=== PATIENT | male | born 1960 | race Caucasian/White ===

== ENCOUNTER 2017-03-06 07:33 | Emergency (ER) | payer MEDICAID ==
[~2017-03-06] VITALS: Ht 157.5 cm; Wt 68.0 kg
[~2017-03-06 07:33] MED LIST: AMLO5TAB88 PO; FENO160T9 PO; INSLAN SUBCUT; INSU100I5 SUBCUT; LINA5TAB PO; LIP40 PO; SERT25TA PO
[2017-03-06 11:36] LABS: BASOPHILS % 1.2 % (0.0-2.0); EOSINOPHILS % 1.7 % (0.0-5.0); HEMATOCRIT. 38.7 % (42.0-52.0); HEMOGLOBIN. 12.8 g/dL (14.0-18.0); LYMPHOCYTES % 13.9 % (20.0-50.0); MEAN CORPUSCULAR HEMOGLOBIN 27.6 pg (28.0-32.0); MEAN CORPUSCULAR VOLUME 83.7 fL (80.0-94.0); MEAN PLATELET VOLUME 11.3 fl (7.4-10.4); MONOCYTES % 8.3 % (2.0-8.0); NEUTROPHILS % 74.9 % (40.0-76.0); PLATELET 156 x1000/uL (130-400); RED BLOOD CELL COUNT 4.63 mill/uL (4.7-6.1); RED CELL DISTRIBUTION WIDTH 16.6 % (11.6-14.6)
[2017-03-06 11:40] LABS: INR 1.3
[2017-03-06 11:47] LABS: CARBON DIOXIDE 30 mEq/L (21-32); CHLORIDE 104 mEq/L (98-107)
[2017-03-06] MEDS ORDERED: SODIUM BICARBONATE 4% (2.4MEQ) 5ML VIAL IV ONE (11:59)
[2017-03-06] MEDS ORDERED: LIDOCAINE HCL 1% 20ML VIAL (Pyxis) INJ ONE (11:59)
[2017-03-06 14:05] VITALS: BP 141/77
== END 2017-03-06 14:09 | disposition home or self-care (01) ==
LOC: ER 08:10
DX: K76.9 Liver disease, unspecified (principal); R18.8 Other ascites; E11.9 Type 2 diabetes mellitus without complications; I10 Essential (primary) hypertension; F17.210 Nicotine dependence, cigarettes, uncomplicated; Z95.1 Presence of aortocoronary bypass graft; Z95.0 Presence of cardiac pacemaker; Z79.4 Long term (current) use of insulin; Z79.899 Other long term (current) drug therapy
CPT/HCPCS: 36415; 49083; 80053; 83690; 85025; 85610; 86850; 86900; 86901; 87070; 87205; 88108; 88312; 89050; 99285; J3490; Z7610

== ENCOUNTER 2019-12-12 07:16 | Emergency (ER) | payer MEDICAID ==
[~2019-12-12] VITALS: Ht 160 cm; Wt 64.0 kg
[2019-12-12] MEDS ORDERED: ONDANSETRON HCL 4MG/2ML INJ IV STA (07:31)
[2019-12-12] MEDS ORDERED: MORPHINE SULFATE 4 MG/ML CPJ (NOT FOR IM USE) IV STA (07:31)
[2019-12-12] MEDS ORDERED: LIDOCAINE HCL 1% 20ML VIAL (Pyxis) INJ INFIL STA (07:36)
[2019-12-12 12:13] LABS: BASOPHILS % 0.7 % (0.0-2.0); EOSINOPHILS % 1.1 % (0.0-5.0); HEMATOCRIT. 35.8 % (42.0-52.0); HEMOGLOBIN. 11.1 g/dL (14.0-18.0); LYMPHOCYTES % 8.1 % (20.0-50.0); MEAN CORPUSCULAR HEMOGLOBIN 23.5 pg (28.0-32.0); MEAN CORPUSCULAR VOLUME 75.5 fL (80.0-94.0); MEAN PLATELET VOLUME 9.9 fl (7.4-10.4); MONOCYTES % 7.3 % (2.0-8.0); NEUTROPHILS % 82.8 % (40.0-76.0); PLATELET 261 x1000/uL (130-400); RED BLOOD CELL COUNT 4.74 mill/uL (4.7-6.1); RED CELL DISTRIBUTION WIDTH 21.8 % (11.6-14.6)
[2019-12-12 12:14] LABS: CHLORIDE 106 mEq/L (98-107)
[2019-12-12 12:18] LABS: ETHANOL BLOOD < 10 mg/dL
[2019-12-12 12:20] LABS: INR 1.1; PROTHROMBIN TIME 11.9 sec (9.6-11.0)
[2019-12-12] MEDS ORDERED: LIDOCAINE HCL 1% 20ML VIAL (Pyxis) INJ ONE (13:45)
[2019-12-12] MEDS ORDERED: SODIUM BICARBONATE 4% (2.4MEQ) 5ML VIAL IV ONE (13:46)
[2019-12-12 15:44] VITALS: BP 135/61
== END 2019-12-12 15:40 | disposition home or self-care (01) ==
LOC: ER 07:16
DX: R18.8 Other ascites (principal); E11.9 Type 2 diabetes mellitus without complications; Z79.899 Other long term (current) drug therapy
CPT/HCPCS: 36415; 49083; 71045; 80053; 80320; 83605; 83690; 84484; 85025; 85610; 87070; 87075; 87205; 89050; 93005; 99285; J2270; J2405; J3490; Z7610; G0480

== ENCOUNTER 2019-12-19 08:51 | Emergency (ER) | payer MEDICAID, OTHER ==
[~2019-12-19] VITALS: Ht 160 cm; Wt 64.0 kg
[2019-12-19 09:43] LABS: HEMATOCRIT. 36.2 % (42.0-52.0); HEMOGLOBIN. 11.3 g/dL (14.0-18.0); MEAN CORPUSCULAR HEMOGLOBIN 23.9 pg (28.0-32.0); MEAN CORPUSCULAR VOLUME 76.2 fL (80.0-94.0); MEAN PLATELET VOLUME 10.1 fl (7.4-10.4); PLATELET 263 x1000/uL (130-400); RED BLOOD CELL COUNT 4.74 mill/uL (4.7-6.1); RED CELL DISTRIBUTION WIDTH 21.5 % (11.6-14.6)
[2019-12-19 09:50] LABS: INR 1.1; PARTIAL THROMBOPLASTIN TIME 28.8 sec (23.4-31.0)
[2019-12-19 10:19] LABS: PLATELET ESTIMATE NORMAL
[2019-12-19] MEDS ORDERED: LIDOCAINE HCL 1% 20ML VIAL (Pyxis) INJ ONE (11:21)
[2019-12-19] MEDS ORDERED: SODIUM BICARBONATE 4% (2.4MEQ) 5ML VIAL IV ONE (11:22)
[2019-12-19 12:55] VITALS: BP 131/70
== END 2019-12-19 13:05 | disposition home or self-care (01) ==
LOC: ER 09:25
DX: R18.8 Other ascites (principal); E11.9 Type 2 diabetes mellitus without complications; I10 Essential (primary) hypertension; Z79.899 Other long term (current) drug therapy; Z79.4 Long term (current) use of insulin
CPT/HCPCS: 36415; 49083; 85025; 85610; 85730; 93005; 99285; J3490; Z7610

== ENCOUNTER 2020-02-14 04:02 | Emergency (ER) | payer MEDICAID, OTHER ==
[~2020-02-14] VITALS: Ht 177.8 cm; Wt 79.0 kg
[2020-02-14] MEDS ORDERED: AZITHROMYCIN 500 MG in DEXT 5% WATER 250 ML IV SCH (04:30)
[2020-02-14] MEDS ORDERED: SODIUM CHLORIDE 0.9% 1000ML BAG (SEPSIS BOLUS) IV ONE (04:30)
[2020-02-14] MEDS ORDERED: PIPERACILLIN/TAZOBACTAM 3.375GM/50ML PREMIX IV ONE (04:30)
[2020-02-14] MEDS ORDERED: VANCOMYCIN 1 G PREMIX 200 ML IV SCH (04:30)
[2020-02-14] MEDS ORDERED: PIPERACILLIN/TAZ 3.375G PREMIX 50 ML IV NR (04:45)
[2020-02-14 04:58] LABS: CHLORIDE 102 mEq/L (98-107)
[2020-02-14 04:59] LABS: MEAN CORPUSCULAR HEMOGLOBIN 24.6 pg (28.0-32.0); MEAN CORPUSCULAR VOLUME 82.8 fL (80.0-94.0); MEAN PLATELET VOLUME 11.8 fl (7.4-10.4); PLATELET 292 x1000/uL (130-400); RED BLOOD CELL COUNT 2.54 mill/uL (4.7-6.1); RED CELL DISTRIBUTION WIDTH 19.2 % (11.6-14.6)
[2020-02-14 05:35] LABS: HEMOGLOBIN. 6.2 g/dL (14.0-18.0)
[2020-02-14 06:31] LABS: PLATELET ESTIMATE NORMAL
[2020-02-14] MEDS ORDERED: PANTOPRAZOLE SODIUM 40 MG/VIAL IV ONE (07:00)
[2020-02-14] MEDS ORDERED: MORPHINE SULFATE 2 MG/ML CPJ (NOT FOR IM USE) IV PRN (08:30)
[2020-02-14] MEDS ORDERED: CEFTRIAXONE 1 G PREMIX 50 ML IV NR (08:30)
[2020-02-14] MEDS ORDERED: DIPHENHYDRAMINE 50MG/ML VIAL IV PRN (08:30)
[2020-02-14] MEDS ORDERED: CLONIDINE 0.1MG TABLET PO PRN (08:30)
[2020-02-14] MEDS ORDERED: ONDANSETRON HCL 4MG/2ML INJ IV PRN (08:30)
[2020-02-14 09:00] VITALS: BP 120/75
[2020-02-15] MEDS ORDERED: CEFTRIAXONE 1,000 MG in DEXTROSE 5% WATER 50 ML IV SCH (09:00)
== END 2020-02-14 09:36 | disposition expired ==
LOC: ER 04:02 → EDBEDREQTM 05:28 → EDBEDREQSVC 05:28 → EDBEDREQTM 06:42 → EDBEDREQSVC 06:42 → ER 09:36 → CANBEDREQ 11:09
DX: A41.9 Sepsis, unspecified organism (principal); R65.20 Severe sepsis without septic shock; I46.9 Cardiac arrest, cause unspecified; K70.31 Alcoholic cirrhosis of liver with ascites; D64.9 Anemia, unspecified; I95.9 Hypotension, unspecified; K92.2 Gastrointestinal hemorrhage, unspecified; I50.9 Heart failure, unspecified; Z95.1 Presence of aortocoronary bypass graft; Z03.818 Encounter for observation for suspected exposure to other biological agents ruled out
CPT/HCPCS: 31500; 36415; 71045; 80053; 82962; 83605; 83880; 84484; 85025; 86850; 86900; 86901; 86920; 87040; 87077; 87186; 87635; 87804; 96365; 96366; 96368; 99285; J0456; J2543; J3370; J7030; J7060; 99291; P9016